=== PATIENT | female | born 2000 | race Caucasian/White ===

== ENCOUNTER 2020-05-31 09:13 | Emergency (ER) | payer BC, SELFPAY ==
--- NOTE | 2020-05-31 09:22 | ED.GENADULT ---
HPI - General Adult General Chief complaint: Upper Respiratory Infection Stated complaint: sore throat/congestion/cough/fever Time Seen by Provider: 05/31/20 09:22 Source: patient Mode of arrival: ambulatory Limitations: no limitations History of Present Illness HPI narrative: 20-year-old female patient presents to the [facility] with complaints of a sore throat for the past 2 days. Patient states her sore throat is getting worse. Also complains of some congestion, fever as high as 100. Patient denies any chest pain, shortness of breath, abdominal pain, nausea, vomiting or diarrhea. Patient states that she was Covid positive in March. Patient states she has been taking some [id number] Tylenol, ibuprofen for her symptoms. Denies any or breast-feeding at this time. Related Data Allergies Allergy/AdvReac Type Severity Reaction Status Date / Time Sulfa (Sulfonamide Allergy Unknown Verified 05/31/20 09:32 Antibiotics) Review of Systems Review of Systems: Narrative: CONSTITUTIONAL: Positive fever, denies chills, or sweats. EYES: Denies visual changes, redness, or discharge. ENT: Denies rhinorrhea, positive congestion, sore throat, denies otalgia. CARDIOVASCULAR: Denies chest pain, palpitations, or edema. RESPIRATORY: Denies cough or dyspnea. GASTROINTESTINAL: Denies abdominal pain, nausea, vomiting, or diarrhea. GENITOURINARY: Denies dysuria or hematuria. SKIN: Denies rash or itching. MUSCULOSKELETAL: Denies back pain, joint pain, or myalgia. NEUROLOGIC: Denies headache, numbness, or weakness. PSYCHIATRIC: Denies anxiety or depression. [facility] Past Medical History Medical History (Updated 05/31/20 @ 09:40 by SANJANA Tony) Lab test positive for detection of COVID-19 virus March 2020 Comments At the time of my signature I agree with nursing past medical history, surgical, social, and family history. There is no relevant family history pertinent to the presenting complaint. Exam Narrative: Exam Narrative: GENERAL: Well-appearing, well-nourished, and in no acute distress. HEAD: Normocephalic, atraumatic. EYES: PERRLA and EOMI. ENT: Nares clear, no rhinorrhea or epistaxis. Mucous membranes moist. Posterior pharynx with erythema, 2+ tonsil enlargement and what appears to be a little bit of petechiae to the uvula. Bilateral TMs are clear no erythema or foreign bodies of the canal. NECK: Supple. No lymphadenopathy CHEST: Clear to auscultation. No respiratory distress. Patient able talk in clear complete sentences. No tripoding noted. HEART: Regular rate and rhythm. No murmur heard. Normal peripheral pulses. ABDOMEN: Soft, nontender, nondistended, normal active bowel sounds. EXTREMITIES: Normal range of motion. No edema. SKIN: Warm, dry, no rash. NEURO: No focal deficits. Alert and oriented x3. Course Vital Signs Vital signs: Vital Signs Temperature 37.3 C 05/31/20 09:27 Pulse Rate 91 05/31/20 09:27 Respiratory Rate 16 05/31/20 09:27 Blood Pressure 130/92 H 05/31/20 09:27 Pulse Oximetry 100 05/31/20 09:27 Temperature 37.3 C 05/31/20 09:27 Pulse Rate 91 05/31/20 09:27 Respiratory Rate 16 05/31/20 09:27 Blood Pressure 130/92 H 05/31/20 09:27 Pulse Oximetry 100 05/31/20 09:27 Vital signs reviewed The patient has been informed that they may have pre-hypertension or Hypertension based on a BP reading in the department. I recommend that the patient call the primary care provider listed on their discharge instructions or a physician of their choice this week to arrange follow up for further evaluation of possible pre-hypertension or Hypertension Medical Decision Making Differential Diagnosis Differential Diagnosis: Differential diagnosis: Viral pharyngitis, pharyngitis, group A strep, infectious mononucleosis, gonococcal pharyngitis, exudative pharyngitis, oral candidiasis. Chronic allergies, postnasal drip, GERD, abscess formation, but glottitis, retrophary
[2020-05-31 09:27] VITALS: BP 130/92; PULSE 91; RESP 16; TEMP 37.3; O2SAT 100
== END 2020-05-31 09:46 | disposition home or self-care (01) ==
PROVIDERS: Emergency Provider Nurse Practitioner Family
DX: J02.0 Streptococcal pharyngitis (principal); Z86.16 Personal history of COVID-19
CPT/HCPCS: 87880; 99213; G0463

== ENCOUNTER 2020-06-26 09:50 | Emergency (ER) | payer BC, SELFPAY ==
[2020-06-26 09:56] VITALS: BP 146/89; PULSE 75; RESP 16; TEMP 37.8; O2SAT 100
--- NOTE | 2020-06-26 10:16 | ED.GENADULT ---
HPI - General Adult General Chief complaint: Upper Respiratory Infection Stated complaint: SORE THROAT/TIRED Source: patient Mode of arrival: ambulatory Limitations: no limitations History of Present Illness HPI narrative: Patient presents for evaluation of sore throat for the last week. She was evaluated here on 05/31/2020 for sore throat and was diagnosed with strep pharyngitis at that time. She was given a prescription for amoxicillin, which she completed. Symptoms improved while on medication. Immediately upon completion of therapy she noted recurrence of her symptoms. Prior to the time of her previous treatment she was experiencing a fever. She denies any current fever. However she states she has some postnasal drainage, a mild nonproductive cough and very mild shortness of breath. Denies any significant body aches, nausea, vomiting, diarrhea, loss of sense of smell/taste. She has been taking Mucinex which seems to help. She states that her sore throat is worse in the morning and is improved with medication and hot tea. She had Covid back in March 2020. No recent identified sick contacts. She does not smoke. She believes her sore throat is 2/2 post-nasal drainage due to cold weather. No additional complaints or concerns. Related Data Allergies Allergy/AdvReac Type Severity Reaction Status Date / Time Sulfa (Sulfonamide Allergy Unknown Verified 05/31/20 09:32 Antibiotics) Review of Systems Review of Systems: Narrative: CONSTITUTIONAL: Denies fever, chills, or sweats. EYES: Denies visual changes, redness, or discharge. ENT: Reports sore throat and postnasal drainage. Denies problems handling secretions, otalgia. CARDIOVASCULAR: Denies chest pain, palpitations, or edema. RESPIRATORY: Reports mild nonproductive cough and very mild SOB GASTROINTESTINAL: Denies abdominal pain, nausea, vomiting, or diarrhea. GENITOURINARY: Denies dysuria or hematuria. SKIN: Denies rash or itching. MUSCULOSKELETAL: Denies back pain, joint pain, or myalgia. NEUROLOGIC: Denies headache, numbness, dizziness, or weakness. PSYCHIATRIC: Denies anxiety or depression. [facility] Past Medical History Medical History Lab test positive for detection of COVID-19 virus March 2020 Surgical History Surgical History No pertinent past surgical history Family History Family History Mother No pertinent past medical history Father No pertinent past medical history Social History Social History Smoking status: Never smoker Alcohol intake: current Alcohol use details: socially weekends Substance use: never Living arrangements: alone Gender identity (if verbalized by the patient): Female Spiritual care concerns: No Exam Narrative: Exam Narrative: GENERAL: Well-appearing, well-nourished, and in no acute distress. HEAD: Normocephalic, atraumatic. EYES: PERRLA and EOMI. ENT: Nares clear, no rhinorrhea or epistaxis. Mucous membranes moist. Mild posterior pharyngeal erythema. No tonsillar swelling. Uvula is midline. Bilateral TMs pearly arce nonbulging NECK: Supple. No adenopathy or masses. No carotid bruits or JVD CHEST: Clear to auscultation. No respiratory distress. No wheezes rales or rhonchi HEART: Regular rate and rhythm. No murmur heard. Normal peripheral pulses. ABDOMEN: Soft, nontender, nondistended, normal active bowel sounds. EXTREMITIES: Normal range of motion. No edema. SKIN: Warm, dry, no rash. NEURO: No focal deficits. Alert and oriented x3. PSYCH: Normal mood and affect. Course Course Emergency Course: This is a 20-year-old female with 1 week history of sore throat. She was recently treated here for strep pharyngitis with amoxicillin, which improved her symptoms. Here
== END 2020-06-26 10:44 | disposition home or self-care (01) ==
PROVIDERS: Emergency Provider Nurse Practitioner
DX: J02.9 Acute pharyngitis, unspecified (principal); Z86.16 Personal history of COVID-19
CPT/HCPCS: 36416; 86308; 87081; 87880; 99213; G0463; J8540

== ENCOUNTER 2023-04-10 16:48 | Emergency (ER) | payer OTHER, SELFPAY ==
--- NOTE | 2023-04-10 16:51 | ED.URI ---
HPI - URI/Sore Throat General Chief Complaint: Upper Respiratory Infection Stated Complaint: Congestion/Fatigue// Time Seen by Provider: 04/10/23 16:51 Source: patient Mode of arrival: ambulatory Limitations: no limitations History of Present Illness HPI Narrative: Tanisha is a 23-year-old female patient presenting to the clinic today with complaints of fatigue, cough, sore throat, body aches, headache, and congestion x2 days. No known exposure to anyone with COVID, flu, or strep. MD elicited complaint: cough, sore throat, nasal congestion and other (Body aches, headache, congestion) Related Data Home Medications Medication Instructions Recorded Confirmed No Home Medications 04/10/23 04/10/23 Allergies Allergy/AdvReac Type Severity Reaction Status Date / Time Sulfa (Sulfonamide Allergy Unknown Verified 04/10/23 17:27 Antibiotics) Review of Systems Review of Systems: Pertinent positives per HPI. Patient denies any rash, visual changes, dizziness,shortness of breath, chest pain, palpitations, nausea, vomiting, diarrhea, constipation, abdominal pain, or any urinary issues. PMFSH Past Medical History Medical History Lab test positive for detection of COVID-19 virus March 2020 Surgical History Surgical History No pertinent past surgical history Family History Family History Mother No pertinent past medical history Father No pertinent past medical history Social History Social History Smoking status: Never smoker Alcohol intake: current Alcohol use details: socially weekend Substance use: never Living arrangements: alone Gender identity (if verbalized by the patient): Female Spiritual care concerns: No Comments At the time of my signature, I reviewed and agree with the nursing past medical, surgical, social, and family history. There is no relevant family history pertinent to the patient complaint. Exam Narrative: General: Well-developed, well nourished, in no apparent distress Head: Normocephalic, atraumatic Eyes: Pupils equally round and reactive to light bilaterally, EOM intact, sclera and conjunctive clear, no discharge, lids normal Ears: TMs intact and clear, ear canals clear, no drainage, grossly hearing normal. Nose: Nares patent, clear nasal discharge, mild inflammation, no sinus tenderness. Mouth: Oral pharynx red without lesions or masses, good dentition, MMM. Neck: Supple, trachea midline, no enlargement of anterior or posterior cervical nodes, no thyroid masses or goiter palpable. Cardio: Regular rate and rhythm, s1 and s2 normal, no murmur appreciated. Resp: Clear to auscultation bilaterally, no rhonchi, rales, wheezing or rubs Course Course Emergency Course: Portions of this record may have been created with voice recognition software. Level of Care: Express Care Visit Vital Signs Vital signs: Vital signs reviewed MDM - URI/Sore Throat MDM Narrative Medical decision making narrative: At the time of visit patient is resting comfortably on the exam table. Patient is nontoxic appearing. COVID, flu, and strep test were all performed. Strep and COVID were negative. Influenza A was positive in the clinic today. Supportive measures were discussed with the patient she voiced understanding discharge instructions and agrees to treatment plan. Return precautions were reviewed Differential Diagnosis Differential diagnosis: Likely upper respiratory infection, otitis media, sinusitis, viral infection, bronchitis, influenza, pharyngitis and other (COVID) Discharge Plan Discharge Clinical Impression: Influenza A Patient Disposition: Home, Self-Care Condition: Stable Instructions: Antibiotic Form, Influenza (ED)
[2023-04-10 16:56] VITALS: BP 125/65; PULSE 114; RESP 16; TEMP 37.3; O2SAT 96
== END 2023-04-10 17:30 | disposition home or self-care (01) ==
PROVIDERS: Emergency Provider Nurse Practitioner Family; PCP Internal Medicine Geriatric Medicine
DX: J10.1 Influenza due to other identified influenza virus with other respiratory manifestations (principal); Z20.822 Contact with and (suspected) exposure to COVID-19
CPT/HCPCS: 87081; 87426; 87804; 87880; 99213; C9803; G0463